=== PATIENT | male | born 1980 | race Caucasian/White ===

== ENCOUNTER → 2017-03-27 | Outpatient (CLI) | payer BC ==
--- NOTE | 2017-03-28 06:22 | PAP/PSG TECHNICIAN REPORT ---
[facility] Analytical Engineer Polysomnogram Report Study name: None Report date: 03/28/2017 Study date: 03/27/2017 Referring Physician: Lucia HUA M.D. Name: JOHN ROLDAN Interpreting Physician: Michelle Hua M.D. Date of : 1980 Analytical Engineer: Abimbola De Anda RPSGT. Sex: Male Age: 36 Study Type: PSG Weight: 228 lbs 17 in Height: 36 years, Height 5' 11" Neck Circum: BMI: 31.8 Medications: NONE REPORTED Patient History 36 yr-old male here for a baseline/split study. He has a history of snoring, witnessed apneas, and does not feel rested upon awakening. His [place]kin scale is 11. The test was started on room air. ETCO2 testing was not utilized during this study. Room 3 Parameters Monitored NPSG: E1-M2, E2-M1, Fp1-M2, Fp2-M1, F3-M2, F4-M2, F4-M1, C3-M2, C4-M2, C4-M1, O1-M2, O2-M2, O2-M1, T3-M2, T4-M1, P3-M2, P4-M1, CHIN1, CHIN2, HR, EKG, Legs, PFLOW, SNOR, FLOW, CFLOW, Tidal Volume, THOR, ABDO, SpO2, PLTH, CPRESS, ETCO2 Wave, ETCO2, pH Sleep Architecture Sleep Stages Time at Lights Off 10:51:22 PM STAGES Time (min.) TST (%) Time at Lights On 5:30:52 AM Wake 17.0 -- Total Recording Time (TRT) 399.50 min. N1 30.5 8 Total Sleep Period (TSP) 397.0 min. N2 253.5 66 Total Sleep Time (TST) 382.5min. N3 12.5 3 Awake Time 17.0 min. REM 86.0 22 Wake after Sleep Onset 14.5 min. Sleep Efficiency (SE) 96 % Sleep Onset Latency (JASON) 2.5 min. Number of Stage 1 Shifts None Awakenings 11 Stage Changes 80 Number of REM periods 7 REM 86.0 22 REM Latency 83.0 min. NREM 296.5 78 Body Position Analysis Supine Right Left Side Prone Vertical Total Sleep Time (min.) 203.2 142.7 44.5 187.23 0.0 0.0 Total Sleep Time (%) 51% 37% 12% 49 0% N/A% Total Sleep Time REM (min.) 71.5 14.5 0.0 None 0.0 0.0 Total Sleep Time NREM (min.) 123.8 128.2 44.5 None 0.0 0.0 Intermittent Wake (min.) 8.0 5.0 4.1 None 0.0 0.0 Total Sleep Period (%) 51% None None None None None Arousals Myoclonus (PLM) * Events Count Index Events Count Index Spontaneous 21 3 Events Awake (PLMW) 31 109.4 Respiratory 7 1.1 Events Asleep w/ Arousal (PLMA) 17 2.7 PLM 17 3 Events Asleep w/o Arousal (PLMS) 107 16.8 Snoring 4 1 Total Asleep 124 19.5 Total 49 8 Total 155 23 Respiratory Analysis * CA OA MA CH H RERA Total Count 0 0 1 0 60 2 61 Index 0.0 0.0 0.2 0 9.4 0 9.9 Mean Duration 0.0 0.0 21.2 0.00 22.1 17.5 21.9 Longest Duration 0.0 0.0 21.2 0.00 21.2 17.8 55.5 Respiratory Event Summary Total Supine ~Supine Right Left Prone REM NREM Apneas Count 1 0 1 1 0 N/A 0 1 Index 0.2 0 0 0.4 0.0 N/A 0 0 Hypopneas (4% Desat) Count 60 44 16 16 0 N/A 49 11 Index 9.4 13.5 5 6.7 0.0 N/A 34.2 2.2 Apneas & All Hypopneas Count 61 44 17 17 0 N/A 49 12 Index 9.6 14 5 7 0 N/A 34.2 2.4 Respiratory Events (Director Validation+All Hyp+RERA) Count 61 46 17 17 0 N/A 49 12 Index 9.9 14 5 7.1 0.0 N/A 35.6 2.4 Respiratory Related Arousal Count 7 46 1 1 0 N/A 5 2 Index 1.1 2 0 0 0 N/A 3 0 Snoring Analysis Supine Right Left Prone REM NREM Total Snore duration 24.6 min Snores count 797 302 203 N/A 345 957 1,302 Snore mean duration 1.1 Sec Snores index 245 127 274 N/A 240.7 193.7 204.2 TST with snoring (%) 6.4% Desaturation Event Summary: Minimum %SpO2 Event Count Mean/Min/Max Duration(sec.) Desaturation Index % Time In Bed > 90 75 33.0 / 7.8 / 60.0 12.2 92.4 86 - 90 2 18.5 / 14.5 / 22.5 4.3 6.9 81 - 85 0 N/A 0.0 0.6 76 - 80 0 N/A 0.0 0.0 71 - 75 0 N/A 0.0 0.0 66 - 70 0 N/A 0.0 0.0 61 - 65 0 N/A 0.0 0.0 56 - 60 0 N/A 0.0 0.0 51 - 55 0 N/A 0.0 0.0 < 50 0 N/A 0.0 0.0 Total REM NREM Awake <50% 0.0 min. 0.0 min. 0.0 min. 0.0 min. 51 - 60% 0.0 min. 0.0 min. 0.0 min. 0.0 min. 61 - 70% 0.0 min. 0.0 min. 0.0 min. 0.0 min. 71 - 80% 0.1 min. 0.1 min. 0.0 min. 0.0 min. 81 - 90% 30.1 min. 19.9 min. 8.0 min. 2.2 min. 91 - 100% 369.3 min. 66.0 min. 288.5 min. 14.8 min. Average 93 92 93 93 Minimum SpO2 79 79 82 85 Desaturation Event Index 11.3 37.0 4.2 7.1 # Desat. Events below 89% 46 39 7 0 Time(%) with Saturation below 89% 3.0 2.5 0.4 0.2 Time(min.) with Saturation below 89% 12.1 9.8 1.7 0.6 Time (mins) REM (mins) NREM (mins) % of TST SpO2 Below 90% 65 49 N16 4.4 SpO2 Below 88% 22 0 0 2 Heart Rate Analysis Min (bpm) Max (bpm) Average (bpm) Awake 63 105 78 NREM 55 103 69 REM 53 99 71 Overall 53 103 70 Supplemental O2 Values Minimum O2 level: None Value Start Time End Time Analytical Engineer Comments Mr. Roldan slept in the right, left, and supine positions. No cardiac arrhythmias were noted. PLMs were noted. No bruxism noted. Snoring was noted and scored as a 2 on a scale of 1 through 5. (0=no snoring, 5=snoring loud enough to be heard through a closed door or down the tom way). He did not meet specific Split-Night criteria during the diagnostic portion of this study. He did not wake up to use the restroom during the night. Mr. Roldan stated that he slept better than usual. The final report will be interpreted and signed by a sleep physician. The completed physician report will then be placed in the patient medical record. Therapy (cm H2O) 0 TIB (min.) 399.5 TST (min.) 382.5 Sleep Onset (min.) 2.5 REM Onset From Sleep (min.) 83.0 Sleep Efficiency % 96 Wakefulness (%) 4 Wakefulness (min.) 17.0 NREM 1 (%) 8 NREM 1 (min.) 30.5 NREM 2 (%) 66 NREM 2 (min.) 253.5 NREM 3 (%) 3 NREM 3 (min.) 12.5 REM (%) 22 REM (min.) 86.0 # Arousals 49 Arousal Index 8 # Snore 1,302 Snore Index 204.2 AHI 9.6 AHI Supine 14 AHI Non-Supine 5 NREM AHI 2.4 REM AHI 34.2 RDI 9.9 # Obstructive Apnea 0 # Central Apnea 0 # Mixed Apnea 1 # Hypopneas 60 RERAs 2 Total Respiratory Events 63 Time Below SpO2 89% (min.) 11.5 Mean NREM SpO2 (%) 93 Mean REM SpO2 (%) 92 Mean Sleep SpO2 (%) 93 Min NREM SpO2 (%) 82 Min REM SpO2 (%) 79 Position Supine (min.) 203.2 Position Non-supine (min.) 187.2 LM Index Sleep 19.5 LM Index NREM 17.6 LM Index REM 25.8 Mean Heart Rate (bpm) 70 Min Heart Rate (bpm) 53
--- NOTE | 2017-04-08 13:49 | POLYSOMNOGRAPH REPORT ---
REFERRING PERSON: Dr. Lisa Hua. PRIMARY SCHOOL TEACHER: Abimbola De Anda. Mr. Roldan is a 36-year-old male sent for a possible split night sleep study. He complains of snoring, witnessed apneas and does not feel rested upon awakening. His [place] sleepiness scale score on the evening of this study is 11. BMI is 31.8. Following the technical and digital specifications of the [place] [employer] (AASM) a standard diagnostic polysomnogram was performed monitoring EEG, EOG, EMG (chin and leg deviations), oxygen saturation, body position, digital video, respiratory effort and airflow. The sleep Stage and event scoring was based on the AASM Manual for the Scoring of Sleep and Associated Events 2007 edition. Apneas are defined as a drop in the peak thermal sensor excursion by >90% of baseline for at least 10 seconds. Hypopneas were scored using the 4% oxygen desaturation rule (4A-[employer]ic[employer]) and a decrease in the nasal pressure excursions by >30% of baseline for at least 10 seconds. Respiratory effort-related arousal (RERA's) is defined as a sequence of breaths lasting at least 10 seconds characterized by increasing respiratory effort or flattening of the nasal pressure waveform leading to an arousal from sleep when the sequence of breaths does not meet criteria for an apnea or hypopnea. Apnea Hypopnea index (AHI) is defined as the number of apneas and hypopneas occurring in an hour of sleep. Respiratory disturbance index (RDI) is defined as the number of apneas, hypopneas, and RERA's occurring in an hour of sleep. Mr. Roldan's total sleep period time was 397 minutes. Total sleep time was 382.5 minutes. Sleep efficiency was 96%. Latency to sleep onset was 2.5 minutes with wake after sleep onset of 14.5 minutes. Total non-REM sleep time was 296.5 minutes. He spent 8% of that time in N1 sleep, 66% in N2 sleep and 3% in N3 sleep. REM latency was 83 minutes. Total REM sleep time was 86 minutes or 22% of total sleep time. There were 49 cortical arousals from sleep. Twenty one of these arousals were spontaneous, 7 were due to respiratory events, 17 were due to periodic limb movements of sleep and 4 were due to snoring. There were 124 periodic limb movements noted on this test. Limb movement index was 19.5. Limb movement with arousal index was 2.7. There were no central obstructive and 1 mixed apnea on this test. There were 60 hypopnea and 2 RERA. Apnea-hypopnea index was 9.6 consistent with mild sleep apnea. The supine AHI was 14, REM AHI was 34.2. 1302 snoring events were recorded. Total sleep time with snoring was 6.4%. Mean saturation during sleep was 93% with desaturations to 79%. Saturations were less than 89% for 12.1 minutes of recorded time. There was no cardiac ectopy noted on this study. Heart rates ranged from a low of 53 beats per minute to a high of 103 beats per minute. IMPRESSION AND PLAN: A 36-year-old male with evidence of mild sleep apnea and significant nocturnal hypoxemia on this test. Apnea is worse in REM sleep. 1. The patient would likely benefit from positive airway pressure therapy. He should return to the sleep lab for a full night titration and then based on those results be started on equipment at home. A download from his machine can be reviewed in 1 month both to check compliance as well as AHI and further pressure adjustments can occur at that time. 2. Alternatively, this patient could be started on auto titrating CPAP and a download from his machine reviewed in 1 month. He can be then set to optimal pressure. 3. Should this patient be unwilling or unable to tolerate CPAP therapy, he could be referred to ear, nose and throat or oral surgery/dental medicine (if appropriate) to discuss alternative treatments for sleep disordered breathing.
== END | disposition home or self-care (01) ==
LOC: C.NEUR 21:00
PROVIDERS: ATTEND Family Medicine
DX: G47.33 Obstructive sleep apnea (adult) (pediatric) (principal)

== ENCOUNTER 2017-11-30 10:01 | Emergency (ER) | payer BC ==
[~2017-11-30] VITALS: Ht 177.8 cm; Wt 104.0 kg
[2017-11-30 10:16] VITALS: TEMP 36.6; Ht 177.8 cm; Wt 104.0 kg
[2017-11-30] MEDS ORDERED: SODIUM CHLORIDE 0.9% 1000ML 1,000 ML IV STA (10:21)
[2017-11-30] MEDS ORDERED: MoRPHine SULFATE 10 MG/ML CARP/VIAL IV STA (10:21)
[2017-11-30] MEDS ORDERED: ONDANSETRON INJ 2 MG/ML 2 ML VIAL IV STA (10:21)
[2017-11-30] MEDS ORDERED: KETOROLAC TROMETHAMINE 30 MG/ML VIAL IV STA (10:21)
[2017-11-30 10:40] LABS: BASO % 0.6 %; BASO ABS # 0.03 K/uL (0-0.2); EOS % 2.8 %; EOS ABS # 0.13 K/uL (0-0.5); HEMATOCRIT 42.2 % (42-52); HEMOGLOBIN 15.2 g/dL (14.0-18.0); IG# 0.01 K/uL (0.00-0.02); LYMPH % 47.1 %; LYMPH ABS # 2.19 K/uL (1.2-3.4); MEAN CELL VOLUME 88.7 fL (80-100); MEAN CORPUSCULAR HEMOGLOBIN 31.9 pg (25-34); MEAN PLATELET VOLUME 9.7 fL (7.4-10.4); MONO % 7.1 %; MONO ABS # 0.33 K/uL (0.11-0.59); NEUT % 42.2 %; NEUT ABS # 1.96 K/uL (1.4-6.5); PLATELET COUNT 234 K/uL (130-400); RED CELL DISTRIBUTION WIDTH CV 12.5 % (11.5-14.5); RED CELL DISTRIBUTION WIDTH SD 40.1 fL (36.4-46.3); WHITE BLOOD COUNT 4.65 K/uL (4.8-10.8)
[2017-11-30] MEDS ORDERED: ESOM20CA PO (10:56)
[2017-11-30 10:57] LABS: ALBUMIN 4.5 gm/dl (3.4-5.0); CALCIUM 9.4 mg/dl (8.5-10.1)
[2017-11-30 11:00] LABS: TOTAL PROTEIN 7.3 gm/dl (6.4-8.2)
--- NOTE | 2017-11-30 11:51 | DIAGNOSTIC IMAGING REPORT ---
CT OF THE ABDOMEN AND PELVIS WITHOUT CONTRAST, STONE PROTOCOL CLINICAL HISTORY: Right flank pain. COMPARISON STUDY: None. TECHNIQUE: Helical axial images of the abdomen and pelvis were obtained without IV or oral contrast according to renal stone protocol. A dose lowering technique was utilized adhering to the principles of ALARA. FINDINGS: There are multiple bilateral renal calculi. These include a 6 mm left renal calculus and a 7 mm right renal calculus. There is mild right hydroureteronephrosis due to a 4 mm distal right ureteral calculus. There is also a nonobstructing 6 mm x 3 mm distal left ureteral calculus. There is no left hydroureteronephrosis. Fatty infiltration of the liver is noted. Evaluation of the abdomen and pelvis is suboptimal on this unenhanced exam. The spleen, adrenal glands and pancreas are normal. There is no evidence for a bowel obstruction. No lymphadenopathy is present. No suspicious skeletal lesions are present. IMPRESSION: 1. 4 mm distal right ureteral calculus which results in mild right hydronephrosis. 2. Nonobstructing 6 x 3 mm distal left ureteral calculus. No left hydronephrosis. 3. Bilateral nephrolithiasis. 4. Fatty liver. Electronically signed by: Francisco Holt M.D. 11/30/2017 11:50 AM Dictated Date/Time: 11/30/2017 11:42 AM
[2017-11-30] MEDS ORDERED: HYDROmorphone INJ 1 MG/ML SYR IV STA (11:52)
[2017-11-30] MEDS ORDERED: OXYC1TAB3 PO (13:00)
[2017-11-30] MEDS ORDERED: TAMS0.4C38 PO (13:00)
[2017-11-30 13:09] VITALS: BP 140/87; PULSE 83; O2SAT 94
--- NOTE | 2017-11-30 14:55 | EMERGENCY ROOM VISIT NOTE ---
History First contact with patient: 10:14 Chief Complaint: KIDNEY STONE Stated Complaint: KIDNEY STONE PAIN History of Present Illness The patient is a 37 year old male, history of recurrent calcium oxalate kidney stones, who presents to the Emergency Room with complaints of severe right flank /right central back discomfort. The patient reports that his pain started this morning. He thought he was constipated, and had a rather large bowel movement. The patient reported that the pain progressively worsened. With the increasing severity, the patient reports that he likely has another kidney stone. The patient is usually able to the past most small stones. His last kidney stone was approximately 3 months ago with left-sided discomfort. The patient is concerned that his pain is higher in the back. The patient has had a prior history of stone obstruction that required surgical intervention. The patient denies any recent urinary symptoms, abdominal pain, fevers or chills. He currently rates his discomfort an 8 out of 10. Review of Systems HEENT: Denies dizziness, visual problems, hearing loss, tinnitus. Denies difficulty swallowing or oral lesions. PULMONARY: Denies cough, shortness of breath, sputum production or hemoptysis. CARDIOVASCULAR: Denies chest pain, palpitations, dyspnea on exertion, orthopnea or peripheral edema. GASTROINTESTINAL: Denies diarrhea, constipation, vomiting, or anterior abdominal pain. Otherwise see history of present illness. GENITOURINARY: Denies dysuria, frequency, urgency or nocturia. Otherwise see history of present illness for history of stones. NEUROLOGIC: Denies history of epilepsy, CVA, TIA or chronic headaches. MUSCULOSKELETAL: Denies history of joint tenderness/swelling. SKIN: Denies rashes or lesions. PSYCHIATRIC: Denies history of depression or mental illness. ENDOCRINE: Denies history of diabetes or thyroid disorders. Past Medical/Surgical History Medical Problems: (1) Kidney stones, calcium oxalate (2) Obstructive Sleep Apnea (Adult) (Pediatric) Family History Unremarkable Social History Smoking Status: Current Every Day Smoker Alcohol Use: occasionally Marital Status: Housing Status: lives with family Occupation Status: employed Current/Historical Medications Scheduled Esomeprazole Magnesium (Nexium), 20 MG PO DAILY Tamsulosin Hcl (Flomax), 0.4 MG PO DAILY Scheduled PRN Oxycodone Ir (Roxicodone Ir), 1-2 TAB PO Q4H PRN for Pain Physical Exam Vital Signs Date Time Temp Pulse Resp B/P (MAP) Pulse Ox O2 Delivery O2 Flow Rate FiO2 1/28/18 13:09 83 16 140/87 94 11/30/17 11:56 61 18 130/80 97 11/30/17 10:16 36.6 76 20 149/98 97 Room Air Physical Exam CONSTITUTIONAL: Healthy and well nourished. Alert and oriented X 3 with positive affect. Patient appears in severe discomfort. HEENT: Normocephalic, atraumatic. Pupils equal, round and reactive. No scleral icterus or conjunctival injection/pallor. NECK: Full active range of motion without discomfort. RESPIRATORY: Clear to auscultation bilaterally with no wheezing, crackles, rhonchi or stridor. CARDIOVASCULAR: Regular rate and rhythm with no murmurs, rubs or gallops. GASTROINTESTINAL: Bowel sounds present in all quadrants. No abdominal tenderness to palpation. Negative CVA tenderness. Negative McBurney's point tenderness. Negative Thomson sign. MUSCULOSKELETAL: Full range of motion of all joints without discomfort. INTEGUMENTARY: No rash or other significant dermatologic conditions noted. HEMATOLOGIC: No ecchymosis or petechiae noted. NEUROLOGIC: No focal neurologic deficits noted. Medical Decision & Procedures ER Provider Diagnostic Interpretation: Noncontrast CT of the abdomen and pelvis shows a 4 mm distal right ureteral calculus with mild hydronephrosis. A 6 x 3 mm distal LEFT ureteral calculus with no hydronephrosis is also noted, along with bilateral nephrolithiasis. Radiologist report is as follows: CT OF THE ABDOMEN AND PELVIS WITHOUT CONTRAST, STONE PROTOCOL CLINICAL HISTORY: Right flank pain. COMPARISON STUDY: None. TECHNIQUE: Helical axial images of the abdomen and pelvis were obtained without IV or oral contrast according to renal stone protocol. A dose lowering technique was utilized adhering to the principles of ALARA. FINDINGS: There are multiple bilateral renal calculi. These include a 6 mm left renal calculus and a 7 mm right renal calculus. There is mild right hydroureteronephrosis due to a 4 mm distal right ureteral calculus. There is also a nonobstructing 6 mm x 3 mm distal left ureteral calculus. There is no left hydroureteronephrosis. Fatty infiltration of the liver is noted. Evaluation of the abdomen and pelvis is suboptimal on this unenhanced exam. The spleen, adrenal glands and pancreas are normal. There is no evidence for a bowel obstruction. No lymphadenopathy is present. No suspicious skeletal lesions are present. IMPRESSION: 1. 4 mm distal right ureteral calculus which results in mild right hydronephrosis. 2. Nonobstructing 6 x 3 mm distal left ureteral calculus. No left hydronephrosis. 3. Bilateral nephrolithiasis. 4. Fatty liver. Laboratory Results 11/30/17 10:30 Red Blood Count 4.76, Mean Corpuscular Volume 88.7, Mean Corpuscular Hemoglobin 31.9, Mean Corpuscular Hemoglobin Concent 36.0, Mean Platelet Volume 9.7, Neutrophils (%) (Auto) 42.2, Lymphocytes (%) (Auto) 47.1, Monocytes (%) (Auto) 7.1, Eosinophils (%) (Auto) 2.8, Basophils (%) (Auto) 0.6, Neutrophils # (Auto) 1.96, Lymphocytes # (Auto) 2.19, Monocytes # (Auto) 0.33, Eosinophils # (Auto) 0.13, Basophils # (Auto) 0.03 11/30/17 10:30 Test 11/30/17 10:30 White Blood Count 4.65 K/uL (4.8-10.8) Red Blood Count 4.76 M/uL (4.7-6.1) Hemoglobin 15.2 g/dL (14.0-18.0) Hematocrit 42.2 % (42-52) Mean Corpuscular Volume 88.7 fL (80-100) Mean Corpuscular Hemoglobin 31.9 pg (25-34) Mean Corpuscular Hemoglobin Concent 36.0 g/dl (32-36) Platelet Count 234 K/uL (130-400) Mean Platelet Volume 9.7 fL (7.4-10.4) Neutrophils (%) (Auto) 42.2 % Lymphocytes (%) (Auto) 47.1 % Monocytes (%) (Auto) 7.1 % Eosinophils (%) (Auto) 2.8 % Basophils (%) (Auto) 0.6 % Neutrophils # (Auto) 1.96 K/uL (1.4-6.5) Lymphocytes # (Auto) 2.19 K/uL (1.2-3.4) Monocytes # (Auto) 0.33 K/uL (0.11-0.59) Eosinophils # (Auto) 0.13 K/uL (0-0.5) Basophils # (Auto) 0.03 K/uL (0-0.2) RDW Standard Deviation 40.1 fL (36.4-46.3) RDW Coefficient of Variation 12.5 % (11.5-14.5) Immature Granulocyte % (Auto) 0.2 % Immature Granulocyte # (Auto) 0.01 K/uL (0.00-0.02) Urine Color YELLOW Urine Appearance CLEAR (CLEAR) Urine pH 5.0 (4.5-7.5) Urine Specific [place] 1.024 (1.000-1.030) Urine Protein NEG (NEG) Urine Glucose (UA) NEG (NEG) Urine Ketones NEG (NEG) Urine Occult Blood 3+ (NEG) Urine Nitrite NEG (NEG) Urine Bilirubin NEG (NEG) Urine Urobilinogen NEG (NEG) Urine Leukocyte Esterase NEG (NEG) Urine WBC (Auto) 1-5 /hpf (0-5) Urine RBC (Auto) 10-30 /hpf (0-4) Urine Hyaline Casts (Auto) 1-5 /lpf (0-5) Urine Epithelial Cells (Auto) 10-20 /lpf (0-5) Urine Bacteria (Auto) NEG (NEG) Anion Gap 4.0 mmol/L (3-11) Est Creatinine Clear Calc Drug Dose 119.8 ml/min Estimated GFR () 109.4 Estimated GFR (Non- 94.4 BUN/Creatinine Ratio 14.5 (10-20) Calcium Level 9.4 mg/dl (8.5-10.1) Total Bilirubin 0.6 mg/dl (0.2-1) Aspartate Amino Transf (AST/SGOT) 44 U/L (15-37) Alanine Aminotransferase (ALT/SGPT) 116 U/L (12-78) Alkaline Phosphatase 38 U/L (45-117) Total Protein 7.3 gm/dl (6.4-8.2) Albumin 4.5 gm/dl (3.4-5.0) Globulin 2.8 gm/dl (2.5-4.0) Albumin/Globulin Ratio 1.6 (0.9-2) Lipase 110 U/L (73-393) The above labs were reviewed. Medications Administered Medications (Trade) Dose Ordered Sig/Inocencio Route Start Time Stop Time Status Last Admin Dose Admin Sodium Chloride 1,000 ml @ 999 mls/hr Q1H1M STAT IV 11/30/17 10:21 11/30/17 11:21 DC 11/30/17 10:29 999 MLS/HR Ketorolac Tromethamine (Toradol Inj) 30 mg NOW STAT IV 11/30/17 10:21 11/30/17 10:23 DC 11/30/17 10:32 30 MG Morphine Sulfate (MoRPHine SULFATE INJ) 8 mg NOW STAT IV 11/30/17 10:21 11/30/17 10:23 DC 11/30/17 10:32 8 MG Ondansetron HCl (Zofran Inj) 4 mg NOW STAT IV 11/30/17 10:21 11/30/17 10:23 DC 11/30/17 10:30 4 MG Hydromorphone HCl (Dilaudid Inj) 1 mg NOW STAT IV 11/30/17 11:52 11/30/17 11:53 DC 11/30/17 11:57 1 MG Procedure 1. IV hydration: The patient was administered normal saline 1 L bolus 2. IV medications: The patient was initially administered Toradol 30 mg, morphine 8 mg and Zofran 4 mg IVP. The patient was administered a subsequent Dilaudid 1 mg IVP for recurrent pain. ED Course Patient history and physical exam were performed. Nurse's notes were reviewed. Vital signs were reviewed, showing an elevated blood pressure 149/98. The patient is afebrile. Patient appears in severe discomfort. IV access was established, and labs were drawn. The patient was hydrated with normal saline, and received IV medications as discussed in the previous Procedure section. Review of labs shows hematuria without signs of infection. Remaining labs are otherwise grossly normal with normal renal function. Noncontrast CT of the abdomen and pelvis shows a 4 mm distal right ureteral calculus with mild hydronephrosis. A 6 x 3 mm distal LEFT ureteral calculus is also noted without hydronephrosis. The patient was advised of the CT findings. He reported notable relief of his pain with the IV morphine and Dilaudid. The patient will be provided prescriptions for Flomax and OxyIR 5 mg. He was encouraged to remain well-hydrated. He was provided contact information for the [facility] urology clinic. Return to the emergency department for uncontrollable pain, vomiting or developing fever. The patient was happy with plan of care, voiced understanding of all discharge instructions, and rated his discomfort a 2 out of 10 at the conclusion of my exam. Medical Decision Patient presents with right flank pain. CT scan today does show a 4 mm distal right ureteral calculus, and 6 x 3 mm distal left ureteral calculus. The patient has no evidence for urinary tract infection on urinalysis. He is afebrile and has no leukocytosis to suggest other infectious etiology. Admin is benign, therefore I do not suspect appendicitis, diverticulitis, bowel obstruction or peritonitis. [facility] Drug Monitoring Program Search Results: patient reviewed within database, no issues identified Medication Reconcilliation Current Medication List: was personally reviewed by me Blood Pressure Screening Patient's blood pressure: Normal blood pressure Impression Primary Impression: Right ureteral calculus Additional Impressions: Left ureteral calculus Kidney stones, calcium oxalate Departure Information Prescriptions Oxycodone Ir (Roxicodone Ir) 5 Mg Tab 1-2 TAB PO Q4H Y for Pain, #15 TAB For Initial Treatment Prov: Darrick Wynn PA 11/30/17 Tamsulosin Hcl (FLOMAX) 0.4 Mg Cap 0.4 MG PO DAILY for 7 Days, #7 CAP Prov: Darrick Wynn PA 11/30/17 Referrals Elvis Man M.D. ([facility]) (PCP) Patient Instructions My [facility] Problem Qualifiers
== END 2017-11-30 13:10 | disposition home or self-care (01) ==
LOC: C.EDB 10:03
DX: N20.2 Calculus of kidney with calculus of ureter (principal); G47.33 Obstructive sleep apnea (adult) (pediatric); Z79.899 Other long term (current) drug therapy; Z87.442 Personal history of urinary calculi; F17.200 Nicotine dependence, unspecified, uncomplicated

== ENCOUNTER 2018-02-01 07:43 | Emergency (ER) | payer BC ==
[~2018-02-01] VITALS: Ht 180.3 cm; Wt 105.0 kg
[~2018-02-01 07:43] MED LIST: ESOM20CA PO; OXYC1TAB3 PO
[2018-02-01 07:48] VITALS: TEMP 36.5; Ht 180.3 cm; Wt 105.0 kg
[2018-02-01] MEDS ORDERED: ONDANSETRON INJ 2 MG/ML 2 ML VIAL IV STA (08:00)
[2018-02-01] MEDS ORDERED: HYDROmorphone INJ 1 MG/ML SYR IV STA (08:00)
[2018-02-01] MEDS ORDERED: SODIUM CHLORIDE 0.9% 1000ML 1,000 ML IV STA (08:00)
[2018-02-01 08:15] LABS: BASO % 0.3 %; BASO ABS # 0.03 K/uL (0-0.2); EOS % 1.2 %; EOS ABS # 0.12 K/uL (0-0.5); HEMATOCRIT 45.6 % (42-52); HEMOGLOBIN 15.7 g/dL (14.0-18.0); IG# 0.06 K/uL (0.00-0.02); LYMPH % 38.2 %; LYMPH ABS # 3.71 K/uL (1.2-3.4); MEAN CELL VOLUME 89.8 fL (80-100); MEAN CORPUSCULAR HEMOGLOBIN 30.9 pg (25-34); MEAN CORPUSCULAR HGB CONC 34.4 g/dl (32-36); MEAN PLATELET VOLUME 9.5 fL (7.4-10.4); MONO % 7.7 %; MONO ABS # 0.75 K/uL (0.11-0.59); NEUT ABS # 5.05 K/uL (1.4-6.5); PLATELET COUNT 256 K/uL (130-400); RED CELL DISTRIBUTION WIDTH CV 12.5 % (11.5-14.5); RED CELL DISTRIBUTION WIDTH SD 40.9 fL (36.4-46.3); WHITE BLOOD COUNT 9.72 K/uL (4.8-10.8)
[2018-02-01] MEDS ORDERED: PHEN-876 PO (08:30)
[2018-02-01] MEDS ORDERED: HYDR-5688 PO (08:30)
--- NOTE | 2018-02-01 08:36 | EMERGENCY ROOM VISIT NOTE ---
History First contact with patient: 07:49 Chief Complaint: URINARY SYMPTOMS Stated Complaint: KIDNEY PAIN Nursing Triage Summary: Recent kidney stone surgery on friday, stent placed on left side. Pt now having intense pain in right testicle and right back. Pt taking hydrocodone and pyridium. Denies N/V. History of Present Illness The patient is a 37 year old male who presents to the Emergency Room with complaints of right flank pain. The patient states that he had surgery to remove several large left-sided kidney stones 2 days ago. He had a stent placed in the left ureter. He states that he was feeling okay the last 2 days, except for being slightly sore. He woke up this morning with pain in his right flank. He describes this as a pressure sensation which radiates into the abdomen and groin. He rates the discomfort a 7/10. There is nothing that makes the pain better or worse. He took hydrocodone without improvement. He reports urinary urgency which he states is usually associated with passing a kidney stone. He is slightly nauseous, but has not vomited. He denies fevers or changes in bowel movements. Dr. Hollingsworth is his urologist. Review of Systems A complete 10 point review of systems was reviewed with the patient with pertinent positives and negatives as per history of present illness. All else were negative. Past Medical/Surgical History Medical Problems: (1) Kidney stones, calcium oxalate (2) Obstructive Sleep Apnea (Adult) (Pediatric) Social History Smoking Status: Former Smoker Alcohol Use: occasionally Marital Status: Housing Status: lives with family Occupation Status: employed Current/Historical Medications Scheduled Esomeprazole Magnesium (Nexium), 20 MG PO DAILY Phenazopyridine HCl (Pyridium), 200 MG PO TID Scheduled PRN Hydrocodone/Acetaminophen 5MG/325MG ([place] 5MG/325MG), 1 TABLET PO Q6H PRN for Pain Physical Exam Vital Signs Date Time Temp Pulse Resp B/P (MAP) Pulse Ox O2 Delivery O2 Flow Rate FiO2 02/01/18 09:51 70 17 136/78 94 Room Air 02/01/18 08:31 78 17 132/88 94 Room Air 02/01/18 07:48 36.5 80 18 162/106 94 Room Air Physical Exam VITALS: Vitals are noted on the nurse's note and reviewed by myself. Vital signs stable. GENERAL: This is a 37-year-old male, in no acute distress, nondiaphoretic, well- developed well-nourished. SKIN: The skin was without rashes. EARS: External auditory canals clear, tympanic membranes pearly jones without erythema or effusion bilaterally. EYES: Pupils equal round and reactive to light and accommodation. MOUTH: Mucous membranes slightly dry. HEART: Regular rate and rhythm without murmurs gallops or rubs. LUNGS: Clear to auscultation bilaterally without wheezes, rales or rhonchi. ABDOMEN: Positive bowel sounds x 4. Soft, mild tenderness to palpation in the right lower quadrant. No guarding or rebound tenderness. MUSCULOSKELETAL: Right CVA tenderness. NEURO: Patient was alert and oriented to person place and time. Medical Decision & Procedures ER Provider Diagnostic Interpretation: KUB IMPRESSION: 1. A left ureteral stent is in place. No calcifications are seen along the course of the stent. 2. Bilateral nonobstructing renal calculi as above. No calcification is seen along the course of the right ureter. ULTRASOUND KIDNEYS AND BLADDER FINDINGS: Kidneys: The kidneys are normal in size and echotexture. The right kidney measures 12.3 x 5.8 x 6.7 cm and the left kidney measures 10.9 x 5.8 x 6.8 cm. There is mild right-sided hydronephrosis. No hydronephrosis is seen on the left. Bilateral nonobstructing shadowing calculi are noted. There is no sonographic evidence of contour deforming renal mass lesion. No perinephric fluid is identified. Bladder: The bladder is normal in appearance. A right ureteral jet was seen. The bladder contains in the left ureteral stent. Upper abdomen: Survey images of the liver show evidence of hepatomegaly and hepatic steatosis. IMPRESSION: 1. The kidneys are normal in size. 2. There is mild right hydronephrosis, possibly related to a right ureteral stone. A right ureteral jet was seen. 3. There is no left-sided hydronephrosis noting a left ureteral stent in place. 4. The bladder was normal as visualized. 5. Nonobstructing calculi are seen in both kidneys. 6. Hepatomegaly and hepatic steatosis. Laboratory Results 02/01/18 07:55 Red Blood Count 5.08, Mean Corpuscular Volume 89.8, Mean Corpuscular Hemoglobin 30.9, Mean Corpuscular Hemoglobin Concent 34.4, Mean Platelet Volume 9.5, Neutrophils (%) (Auto) 52.0, Lymphocytes (%) (Auto) 38.2, Monocytes (%) (Auto) 7.7, Eosinophils (%) (Auto) 1.2, Basophils (%) (Auto) 0.3, Neutrophils # (Auto) 5.05, Lymphocytes # (Auto) 3.71, Monocytes # (Auto) 0.75, Eosinophils # (Auto) 0.12, Basophils # (Auto) 0.03 02/01/18 07:55 Test 02/01/18 07:40 02/01/18 07:55 Urine Color DK YELLOW Urine Appearance TURBID (CLEAR) Urine pH 5.5 (4.5-7.5) Urine Specific [place] 1.022 (1.000-1.030) Urine Protein 2+ (NEG) Urine Glucose (UA) NEG (NEG) Urine Ketones NEG (NEG) Urine Occult Blood 3+ (NEG) Urine Nitrite POS (NEG) Urine Bilirubin NEG (NEG) Urine Urobilinogen NEG (NEG) Urine Leukocyte Esterase MODERATE (NEG) Urine WBC (Auto) 10-30 /hpf (0-5) Urine RBC (Auto) >30 /hpf (0-4) Urine Hyaline Casts (Auto) 1-5 /lpf (0-5) Urine Epithelial Cells (Auto) 20-30 /lpf (0-5) Urine Bacteria (Auto) NEG (NEG) White Blood Count 9.72 K/uL (4.8-10.8) Red Blood Count 5.08 M/uL (4.7-6.1) Hemoglobin 15.7 g/dL (14.0-18.0) Hematocrit 45.6 % (42-52) Mean Corpuscular Volume 89.8 fL (80-100) Mean Corpuscular Hemoglobin 30.9 pg (25-34) Mean Corpuscular Hemoglobin Concent 34.4 g/dl (32-36) Platelet Count 256 K/uL (130-400) Mean Platelet Volume 9.5 fL (7.4-10.4) Neutrophils (%) (Auto) 52.0 % Lymphocytes (%) (Auto) 38.2 % Monocytes (%) (Auto) 7.7 % Eosinophils (%) (Auto) 1.2 % Basophils (%) (Auto) 0.3 % Neutrophils # (Auto) 5.05 K/uL (1.4-6.5) Lymphocytes # (Auto) 3.71 K/uL (1.2-3.4) Monocytes # (Auto) 0.75 K/uL (0.11-0.59) Eosinophils # (Auto) 0.12 K/uL (0-0.5) Basophils # (Auto) 0.03 K/uL (0-0.2) RDW Standard Deviation 40.9 fL (36.4-46.3) RDW Coefficient of Variation 12.5 % (11.5-14.5) Immature Granulocyte % (Auto) 0.6 % Immature Granulocyte # (Auto) 0.06 K/uL (0.00-0.02) Anion Gap 6.0 mmol/L (3-11) Est Creatinine Clear Calc Drug Dose 106.3 ml/min Estimated GFR () 92.4 Estimated GFR (Non- 79.7 BUN/Creatinine Ratio 15.1 (10-20) Calcium Level 9.0 mg/dl (8.5-10.1) Total Bilirubin 0.7 mg/dl (0.2-1) Direct Bilirubin 0.1 mg/dl (0-0.2) Aspartate Amino Transf (AST/SGOT) 36 U/L (15-37) Alanine Aminotransferase (ALT/SGPT) 100 U/L (12-78) Alkaline Phosphatase 43 U/L (45-117) Total Protein 7.6 gm/dl (6.4-8.2) Albumin 4.2 gm/dl (3.4-5.0) Medications Administered Medications (Trade) Dose Ordered Sig/Inocencio Route Start Time Stop Time Status Last Admin Dose Admin Sodium Chloride 1,000 ml @ 999 mls/hr Q1H1M STAT IV 02/01/18 08:00 02/01/18 09:00 DC 02/01/18 08:10 999 MLS/HR Hydromorphone HCl (Dilaudid Inj) 1 mg NOW STAT IV 02/01/18 08:00 02/01/18 08:02 DC 02/01/18 08:08 1 MG Ondansetron HCl (Zofran Inj) 4 mg NOW STAT IV 02/01/18 08:00 02/01/18 08:02 DC 02/01/18 08:07 4 MG Ketorolac Tromethamine (Toradol Inj) 15 mg NOW STAT IV 02/01/18 09:39 02/01/18 09:41 DC 02/01/18 09:52 15 MG Medical Decision Differential diagnosis includes kidney stone, pyelonephritis, postoperative pain , UTI, among others. The patient is a 37-year-old male who presents today complaining of right flank pain 2 days status post kidney stone removal and left ureteral stent placement. KUB was performed which showed no obvious ureteral stones. Renal ultrasound showed mild right hydronephrosis but no obvious obstructing stones. Labs revealed no leukocytosis, anemia or concerning electrolyte abnormalities. Creatinine was within normal limits. Urinalysis showed 3+ blood, positive nitrite, moderate leukocyte esterase, 10-30 WBCs, and 20-30 epithelial cells. The case was discussed with Dr. Hollingsworth of urology. She felt that this represented normal postoperative pain and did not suggest any further imaging or workup. She did not feel this urinalysis represented UTI at this time and recommended a urine culture. She recommended that he keep up with his anti- inflammatory and continue to use his hydrocodone as needed for more severe pain. She states that the patient will be contacted by the office tomorrow and they will schedule follow-up for him. The patient was reassured. He was given 1 dose of pain medication in the emergency department. He felt much better after this and was comfortable with this plan of care. Based on the patient's presentation and work up, I feel the patient is stable for outpatient treatment. The patient was educated to return to the emergency department for any worsening of their current condition or new/concerning symptoms. He will follow up with his PCP. Medication Reconcilliation Current Medication List: was personally reviewed by me Blood Pressure Screening Patient's blood pressure: Normal blood pressure Impression Primary Impression: Right flank pain Departure Information Dispostion Home / Self-Care Condition GOOD Referrals No Doctor, Assigned (PCP) Bailey Hollingsworth MD Patient Instructions [facility] Additional Instructions You have been treated in the Emergency Department today for flank pain. You have received pain medicine in the emergency department which impairs your ability to operate a vehicle. It is illegal for you to drive after receiving these medicines. Make sure to take Ibuprofen on a regular basis. For pain control, you can use the following [id number] medicines (if >12 yo): - Regular strength (325mg/tab) Tylenol (acetaminophen) 2 tabs every 4-6 hours as needed. Do not exceed 12 tablets in a 24 hour period. Avoid taking more than 4 grams (4000 mg) of Tylenol per day. This includes any other sources of acetaminophen you may take on a regular basis. Take the [place] as needed for pain. Contact the ER tomorrow to check on your culture results. Follow-up with your urologist this week. Return to the Emergency Department if your symptoms persist despite the treatment plan outlined above or if you develop the following symptoms: intractable pain, fever, chills, or large amounts of blood in your urine.
[2018-02-01 08:45] LABS: ALBUMIN 4.2 gm/dl (3.4-5.0); CREATININE 1.15 mg/dl (0.60-1.40); POTASSIUM 3.8 mmol/L (3.5-5.1)
[2018-02-01 08:48] LABS: TOTAL PROTEIN 7.6 gm/dl (6.4-8.2)
--- NOTE | 2018-02-01 08:52 | DIAGNOSTIC IMAGING REPORT ---
KUB CLINICAL HISTORY: Right flank pain. FINDINGS: 2 AP supine abdominal radiographs are correlated with abdominal CT dated 11/30/2017. There is a nonobstructed abdominal bowel gas pattern. A left ureteral stent is in place. No calcifications are seen along the course of the stent. There are least 4 nonobstructing left renal calculi which measure up to 4 mm. There are least 2 nonobstructing right renal calculi which measure up to 7 mm. No calcification is seen along the course of the right ureter. A tiny phlebolith is noted in the left hemipelvis. The bony structures appear intact. IMPRESSION: 1. A left ureteral stent is in place. No calcifications are seen along the course of the stent. 2. Bilateral nonobstructing renal calculi as above. No calcification is seen along the course of the right ureter. Electronically signed by: Sushil Burns M.D. 02/01/2018 8:51 AM Dictated Date/Time: 02/01/2018 8:49 AM
--- NOTE | 2018-02-01 09:11 | DIAGNOSTIC IMAGING REPORT ---
ULTRASOUND KIDNEYS AND BLADDER CLINICAL HISTORY: Right flank pain. COMPARISON STUDY: Abdominal CT dated 11/30/2017. TECHNIQUE: Real-time, grayscale, and color flow sonography of the kidneys and bladder is performed. Images are reviewed in the transverse and longitudinal planes. FINDINGS: Kidneys: The kidneys are normal in size and echotexture. The right kidney measures 12.3 x 5.8 x 6.7 cm and the left kidney measures 10.9 x 5.8 x 6.8 cm. There is mild right-sided hydronephrosis. No hydronephrosis is seen on the left. Bilateral nonobstructing shadowing calculi are noted. There is no sonographic evidence of contour deforming renal mass lesion. No perinephric fluid is identified. Bladder: The bladder is normal in appearance. A right ureteral jet was seen. The bladder contains in the left ureteral stent. Upper abdomen: Survey images of the liver show evidence of hepatomegaly and hepatic steatosis. IMPRESSION: 1. The kidneys are normal in size. 2. There is mild right hydronephrosis, possibly related to a right ureteral stone. A right ureteral jet was seen. 3. There is no left-sided hydronephrosis noting a left ureteral stent in place. 4. The bladder was normal as visualized. 5. Nonobstructing calculi are seen in both kidneys. 6. Hepatomegaly and hepatic steatosis. Electronically signed by: Sushil Burns M.D. 02/01/2018 9:10 AM Dictated Date/Time: 02/01/2018 9:07 AM
[2018-02-01] MEDS ORDERED: KETOROLAC TROMETHAMINE 15 MG/ML VIAL IV STA (09:39)
[2018-02-01 09:51] VITALS: BP 136/78; PULSE 70; O2SAT 94
--- NOTE | 2018-02-02 16:13 | Pharmacy Progress Note ---
ED Pharmacist Progress Note Date of Service: Feb 02, 2018. Patient called in regarding urine sample given yesterday to follow up his culture. I let him know that it is preliminary right now but it is currently showing that nothing is currently growing.
== END 2018-02-01 10:02 | disposition home or self-care (01) ==
LOC: C.EDB 07:45 → C.EDA 10:02
DX: R10.9 Unspecified abdominal pain (principal); Z87.442 Personal history of urinary calculi; G47.33 Obstructive sleep apnea (adult) (pediatric); Z87.891 Personal history of nicotine dependence; Z79.899 Other long term (current) drug therapy